=== PATIENT | female | born 1945 | race Two or more races ===

== ENCOUNTER 2016-06-21 19:46 | Inpatient (IN) | payer OTHER ==
[~2016-06-21] VITALS: Ht 152.4 cm; Wt 70.3 kg
[2016-06-21 20:53] LABS: Basophils # (auto) 0 uL; Basophils % (auto) 0.1 % (0.0-2.0); Eosinophils # (auto) 0.1 uL; Eosinophils % (auto) 0.6 % (0.0-7.0); Hematocrit 35.4 % (36.0-46.0); Hemoglobin 11.6 g/dL (12.2-16.2); Lymphocytes % (auto) 15.3 % (10.0-50.0); Mean Corpuscular Hemoglobin 29.6 pg (28.0-32.0); Mean Corpuscular Hgb Conc. 32.8 g/dL (32.0-36.0); Mean Corpuscular Volume 90.4 fL (80.0-100.0); Monocytes # (auto) 0.9 uL; Monocytes % (auto) 6.8 % (0.0-12.0); Neutrophils # (auto) 9.9 uL; Neutrophils % (auto) 77.2 % (37.0-80.0); Platelet Count (auto) 315 10^3/uL (140-450); Red Cell Distribution Width 12.9 % (11.6-16.0); White Blood Cell 12.9 10^3/uL (4.4-10.8)
[2016-06-21 21:42] LABS: Albumin 2.7 g/dL (3.4-5.0); BUN/Creatinine Ratio 17.1; Bilirubin, Total 0.5 mg/dL (0.2-1.0); Calcium 7.8 mg/dL (8.5-10.1); Magnesium 2.4 mg/dL (1.6-2.6); Potassium 4.1 mmol/L (3.5-5.1); Total Protein 6.6 g/dL (6.4-8.2)
[2016-06-21] MEDS ORDERED: FUROSEMIDE 40 MG/4 ML VIAL IV ONE (21:45)
[2016-06-21 21:59] LABS: B-Type Natriuretic Peptide 1611.71 pg/mL (0-100); Temperature: 23.5 C (20.0-25.0)
[2016-06-21] MEDS ORDERED: CLOPIDOGREL 300 MG TAB PO ONE (23:00)
[2016-06-21] MEDS ORDERED: ENOXAPARIN SOD 80 MG/0.8ML SYRINGE SC ONE (23:00)
[2016-06-22] MEDS ORDERED: CLOPIDOGREL 300 MG TAB ONE (01:08)
[2016-06-22] MEDS ORDERED: ACETAMINOPHEN 325 MG TAB PO PRN (01:15)
[2016-06-22] MEDS ORDERED: HYDROcodone-ACET 5/325MG TAB PO PRN (01:15)
[2016-06-22] MEDS ORDERED: DEXTROSE (50%) 50ML SYRG IV PRN ×2 (01:15→01:30)
[2016-06-22] MEDS ORDERED: ONDANSETRON HCL 4 MG/2 ML VIAL IV PRN (01:15)
[2016-06-22] MEDS ORDERED: MORPHINE SULF INJ 2 MG/ML SYRINGE 1ML IV PRN ×2 (01:15)
[2016-06-22] MEDS ORDERED: TEMAZEPAM 15 MG CAP PO PRN (01:15)
[2016-06-22] MEDS ORDERED: NITROGLYCERIN 0.4 MG SL TAB SL PRN (01:15)
[2016-06-22] MEDS ORDERED: LEVOFLOXACIN 250MG 50 ML IV ONE (01:15)
[2016-06-22] MEDS ORDERED: FLEET ENEMA(ADULT) 135 ML PR ONE (02:00)
[2016-06-22] MEDS: SODIUM CHLORIDE 0.9% 1,000 ML IV SCH ×2 (04:26→15:43)
[2016-06-22] MEDS ORDERED: ACCU-CHEK COMFORT CURVE STRIP VI SCH (06:00)
[2016-06-22] MEDS ORDERED: InsuLIN REG 1unit/0.01ml Soln (100units/ml) SC SCH (06:00)
[2016-06-22] MEDS: ACCU-CHEK COMFORT CURVE STRIP VI SCH ×2 (06:30→12:32)
[2016-06-22] MEDS: InsuLIN REG 1unit/0.01ml Soln (100units/ml) SC SCH ×2 (06:48→12:32)
[2016-06-22] MEDS ORDERED: LEVOTHYROXINE SODIUM 100 MCG TAB PO SCH (07:00)
[2016-06-22] MEDS ORDERED: ENOXAPARIN SOD 100 MG/1 ML SYRINGE SC ONE (07:30)
[2016-06-22] MEDS ORDERED: ENOXAPARIN SOD 80 MG/0.8ML SYRINGE SC ONE (07:45)
[2016-06-22] MEDS ORDERED: ASPirin 81 mg TAB PO SCH (10:00)
[2016-06-22] MEDS ORDERED: ENOXAPARIN SOD 80 MG/0.8ML SYRINGE SC SCH ×2 (10:00→17:00)
[2016-06-22] MEDS ORDERED: FAMOTIDINE 20 MG TAB PO SCH (10:00)
[2016-06-22] MEDS ORDERED: CLOPIDOGREL BISULFATE 75 MG TAB PO SCH (10:00)
[2016-06-22] MEDS ORDERED: ALLOPURINOL 100 MG TAB PO SCH (10:00)
[2016-06-22] MEDS ORDERED: amLODIPine BESYLATE 5 MG TAB PO SCH (10:00)
[2016-06-22] MEDS ORDERED: ISOSORBIDE MONONITRATE 60 MG TAB PO SCH (10:00)
[2016-06-22] MEDS ORDERED: CARVEDILOL 12.5 MG TAB PO SCH (10:00)
[2016-06-22 16:52] VITALS: BP 117/67
[2016-06-22] MEDS ORDERED: LEVOFLOXACIN 250MG 50 ML IV SCH (22:00)
[2016-06-22] MEDS ORDERED: ATORVASTATIN 20 MG TAB PO SCH (22:00)
== END 2016-06-22 17:24 | disposition short-term general hospital (02) | DRG 280 ==
LOC: ER 20:00 → TELE 20:01
PROVIDERS: ADMIT Nurse Practitioner; ATTEND Internal Medicine
DX: I21.4 Non-ST elevation (NSTEMI) myocardial infarction (principal); I50.43 Acute on chronic combined systolic (congestive) and diastolic (congestive) heart failure; E43 Unspecified severe protein-calorie malnutrition; I13.0 Hypertensive heart and chronic kidney disease with heart failure and stage 1 through stage 4 chronic kidney disease, or unspecified chronic kidney disease; N18.3 Chronic kidney disease, stage 3 (moderate); E11.22 Type 2 diabetes mellitus with diabetic chronic kidney disease; E11.65 Type 2 diabetes mellitus with hyperglycemia; E11.21 Type 2 diabetes mellitus with diabetic nephropathy; E78.5 Hyperlipidemia, unspecified; I25.10 Atherosclerotic heart disease of native coronary artery without angina pectoris; Z95.1 Presence of aortocoronary bypass graft; Z90.49 Acquired absence of other specified parts of digestive tract; Z90.710 Acquired absence of both cervix and uterus
CPT/HCPCS: 36415; 71010; 80053; 82962; 83735; 83880; 84484; 85025; 93005; 93306; 96361; 96365; 96372; 96375; 99291; J1815; J2405